=== PATIENT | male | born 1970 | race Caucasian/White ===

== ENCOUNTER → 2016-12-15 | Outpatient (CLI) | payer BC ==
[~2016-12-15] MED LIST: CHOL200010 PO; KRIL1CAP7 PO; MISCCAP80 PO; OXYC-57 PO
[2016-12-15 12:26] LABS: BASO % 0.8 %; BASO ABS # 0.04 K/uL (0-0.2); COMPLETE YES; EOS % 5.6 %; HEMATOCRIT 42.4 % (42-52); IG% 0.2 %; LYMPH % 38.1 %; LYMPH ABS # 1.83 K/uL (1.2-3.4); MEAN CELL VOLUME 93.4 fL (80-100); MEAN CORPUSCULAR HEMOGLOBIN 32.4 pg (25-34); MEAN CORPUSCULAR HGB CONC 34.7 g/dl (32-36); MEAN PLATELET VOLUME 11.1 fL (7.4-10.4); MONO % 17.1 %; NEUT % 38.2 %; PLATELET COUNT 170 K/uL (130-400); RED BLOOD COUNT 4.54 M/uL (4.7-6.1)
[2016-12-15 12:58] LABS: ALT/SGPT 22 U/L (12-78); BLOOD UREA NITROGEN 19 mg/dl (7-18); CALCIUM 8.5 mg/dl (8.5-10.1); CARBON DIOXIDE 29 mmol/L (21-32); CHLORIDE 105 mmol/L (98-107); CREATININE 0.95 mg/dl (0.60-1.40); GLUCOSE 92 mg/dl (70-99); MAGNESIUM 2.1 mg/dl (1.8-2.4); POTASSIUM 3.8 mmol/L (3.5-5.1); SODIUM 139 mmol/L (136-145)
[2016-12-15 13:31] LABS: ALKALINE PHOSPHATASE 44 U/L (45-117); AST/SGOT 17 U/L (15-37)
== END | disposition home or self-care (01) ==
LOC: C.LABBFT 08:47
PROVIDERS: ATTEND Internal Medicine
DX: Z00.00 Encounter for general adult medical examination without abnormal findings (principal); R00.2 Palpitations

== ENCOUNTER → 2017-12-03 | Outpatient (CLI) | payer OTHER ==
[~2017-12-03] MED LIST changes: -OXYC-57 PO
[2017-12-03 12:17] LABS: BASO % 1.1 %; BASO ABS # 0.06 K/uL (0-0.2); EOS % 4.5 %; EOS ABS # 0.25 K/uL (0-0.5); HEMATOCRIT 43.2 % (42-52); HEMOGLOBIN 14.8 g/dL (14.0-18.0); IG# 0.02 K/uL (0.00-0.02); LYMPH % 35.7 %; LYMPH ABS # 1.98 K/uL (1.2-3.4); MEAN CELL VOLUME 93.3 fL (80-100); MEAN CORPUSCULAR HGB CONC 34.3 g/dl (32-36); MEAN PLATELET VOLUME 10.8 fL (7.4-10.4); MONO % 11.6 %; MONO ABS # 0.64 K/uL (0.11-0.59); NEUT % 46.7 %; NEUT ABS # 2.59 K/uL (1.4-6.5); PLATELET COUNT 229 K/uL (130-400); RED CELL DISTRIBUTION WIDTH CV 13.2 % (11.5-14.5); RED CELL DISTRIBUTION WIDTH SD 45.2 fL (36.4-46.3); WHITE BLOOD COUNT 5.54 K/uL (4.8-10.8)
[2017-12-03 15:20] LABS: ALBUMIN 3.6 gm/dl (3.4-5.0); ALT/SGPT 27 U/L (12-78); AST/SGOT 17 U/L (15-37); BLOOD UREA NITROGEN 19 mg/dl (7-18); CALCIUM 9.2 mg/dl (8.5-10.1); CARBON DIOXIDE 28 mmol/L (21-32); CREATININE 0.92 mg/dl (0.60-1.40); GLUCOSE 96 mg/dl (70-99); POTASSIUM 4.1 mmol/L (3.5-5.1); SODIUM 139 mmol/L (136-145)
[2017-12-03 15:23] LABS: ALKALINE PHOSPHATASE 45 U/L (45-117); CHOLESTEROL 218 mg/dl (0-200); LDL CHOLESTEROL CALCULATED 145 mg/dl; TOTAL PROTEIN 7.5 gm/dl (6.4-8.2)
== END | disposition home or self-care (01) ==
LOC: C.LAB1850 10:20
PROVIDERS: ATTEND Internal Medicine
DX: Z00.00 Encounter for general adult medical examination without abnormal findings (principal); Z13.6 Encounter for screening for cardiovascular disorders